=== PATIENT | male | born 1980 | race Caucasian/White ===

== ENCOUNTER 2017-09-11 06:21 | Emergency (ER) | payer BC ==
[~2017-09-11] VITALS: Ht 170.2 cm; Wt 81.4 kg
[2017-09-11 06:25] VITALS: Ht 170.2 cm; Wt 81.4 kg
[2017-09-11 06:59] LABS: BASOPHIL % 0.4 % (0-2); PLATELET COUNT 285 x10^3mcL (130-400); RED CELL DISTRIBUTION WIDTH 12.9 % (11.5-14.5)
[2017-09-11 07:21] LABS: CHLORIDE SERUM 105 mmol/L (98-107); CREATININE SERUM 0.9 mg/dL (0.7-1.3); GFR1 > 60 mL/min; GLUCOSE SERUM 115 mg/dL (74-106); SODIUM SERUM 142 mmol/L (136-145)
[2017-09-11 07:24] LABS: ALBUMIN 4.1 g/dL (3.4-5.0); ALKALINE PHOSPHATASE 69 U/L (46-116); ALT/SGPT 34 U/L (16-63); AST/SGOT 15 U/L (15-37); BILIRUBIN TOTAL 0.34 mg/dL (0.20-1.00); LIPASE 110 IU/L (73-393); TOTAL PROTEIN, SERUM 7.6 g/dL (6.4-8.2)
[2017-09-11 07:34] LABS: AMYLASE 304 U/L (25-115)
[2017-09-11 07:46] LABS: UA SPECIFIC GRAVITY >=1.030 (1.005-1.035); microscopic required? YES; urine erythrocyte 3+ (NEGATIVE)
[2017-09-11 08:33] VITALS: BP 121/70
== END 2017-09-11 08:33 | disposition left against medical advice (07) ==
LOC: ED 06:21 → DU 08:08 → ED 08:08
PROVIDERS: Emergency Medicine
DX: N23 Unspecified renal colic (principal); N20.0 Calculus of kidney
CPT/HCPCS: 83880; J1885

== ENCOUNTER 2017-09-12 23:41 | Inpatient (IN) | payer BC ==
[~2017-09-12] VITALS: Ht 170.2 cm; Wt 77.1 kg
[2017-09-13] VITALS (9 sets, daily range): BP systolic 93–142; BP diastolic 44–82; Ht 170.2 cm; Wt 77.1 kg
[2017-09-13 02:50] LABS: UA SPECIFIC GRAVITY 1.025 (1.005-1.035); microscopic required? YES; urine erythrocyte 3+ (NEGATIVE)
[2017-09-13 03:00] LABS: T3 TOTAL 1.01 ng/mL
[2017-09-13 03:04] LABS: CALCIUM 8.1 mg/dL (8.5-10.1); CARBON DIOXIDE 22.7 mmol/L (21-32); CHLORIDE SERUM 107 mmol/L (98-107); CREATININE SERUM 0.9 mg/dL (0.7-1.3); GFR1 > 60 mL/min; GLUCOSE SERUM 131 mg/dL (74-106); POTASSIUM SERUM 3.5 mmol/L (3.5-5.1); SODIUM SERUM 139 mmol/L (136-145)
[2017-09-13 03:09] LABS: ALBUMIN 3.9 g/dL (3.4-5.0); ALKALINE PHOSPHATASE 56 U/L (46-116); ALT/SGPT 29 U/L (16-63); AST/SGOT 14 U/L (15-37); BILIRUBIN TOTAL 0.5 mg/dL (0.20-1.00); LIPASE 58 IU/L (73-393)
[2017-09-13 03:14] LABS: CHOLESTEROL/HDL RATIO 2.7; MAGNESIUM 1.9 mg/dL (1.8-2.4); PHOSPHOROUS 3.4 mg/dL (2.5-4.9)
[2017-09-13 03:25] LABS: FREE T4 1.1 ng/dL (0.76-1.46); FREE THYROXINE INDEX 3.3 ug/dL (1.4-4.5); T4(THYROXINE) 9.3 ug/dL (4.7-13.3)
[2017-09-13 03:47] LABS: PLATELET COUNT 245 x10^3mcL (130-400); RED CELL DISTRIBUTION WIDTH 13.3 % (11.5-14.5)
[2017-09-13 03:54] LABS: BASOPHIL % 0 % (0-2)
[2017-09-14 06:11] VITALS: BP 100/55
[2017-09-14 07:18] LABS: BASOPHIL % 0.4 % (0-2); PLATELET COUNT 218 x10^3mcL (130-400); RED CELL DISTRIBUTION WIDTH 13.8 % (11.5-14.5)
[2017-09-14 07:49] LABS: CALCIUM 7.7 mg/dL (8.5-10.1); CARBON DIOXIDE 25.6 mmol/L (21-32); CHLORIDE SERUM 107 mmol/L (98-107); CREATININE SERUM 0.8 mg/dL (0.7-1.3); GFR1 > 60 mL/min; GLUCOSE SERUM 79 mg/dL (74-106); MAGNESIUM 2.1 mg/dL (1.8-2.4); PHOSPHOROUS 3.1 mg/dL (2.5-4.9); POTASSIUM SERUM 3.3 mmol/L (3.5-5.1); SODIUM SERUM 141 mmol/L (136-145)
[2017-09-14 09:27] LABS: AMPHETAMINE QUAL UR NONE DETECTED (NEG <=1000)
[2017-09-14 09:58] VITALS: BP 138/62
[2017-09-14 13:09] VITALS: BP 138/62
[2017-09-14] MEDS ORDERED: FLO4 PO (13:21)
[2017-09-14 14:04] VITALS: BP 96/53
== END 2017-09-14 14:28 | disposition home or self-care (01) | DRG 690 ==
LOC: ED 23:41 → DU 09-13 01:52
PROVIDERS: Emergency Medicine; Student in an Organized Health Care Education/Training Program
DX: N13.6 Pyonephrosis (principal); N20.1 Calculus of ureter; N17.0 Acute kidney failure with tubular necrosis; E83.51 Hypocalcemia; J45.909 Unspecified asthma, uncomplicated
CPT/HCPCS: 83880; 84439; 90658; J1885; J2270; J2405; J2543; J7030